=== PATIENT | male | born 1935 | race Caucasian/White ===

== ENCOUNTER 2018-01-18 20:37 | Emergency (ER) | payer OTHER ==
[~2018-01-18] VITALS: Ht 172.7 cm; Wt 99.0 kg
[2018-01-18 21:46] LABS: HEMATOCRIT 44.1 % (38.0-50.0); HEMOGLOBIN 15.6 G/DL (12.5-16.6); MCHC 35.4 G/DL (30.0-36.0); MCV 90.4 FL (86-99); PLATELET COUNT 222 K/uL (156-360); RBC DIS.WIDTH-CV 11.9 % (11.8-14.6); RBC DIS.WIDTH-SD 39.7 % (39-53); RED BLOOD COUNT 4.88 M/uL (4.00-5.50); WHITE BLOOD COUNT 9.6 K/uL (4.1-10.2)
[2018-01-18 21:51] LABS: INTER. NORMALIZED RATIO 1.1
[2018-01-18 21:57] LABS: CHLORIDE 103 mEq/L (99-109); POTASSIUM 4.1 mEq/L (3.7-5.4); SODIUM 135 mEq/L (136-147)
[2018-01-18 21:59] LABS: GLUCOSE 156 mg/dL (70-99)
[2018-01-18 22:02] LABS: SERUM ETHYL ALCOHOL 176 mg/dL
[2018-01-18 22:03] LABS: CREATININE 1.2 mg/dL (0.6-1.3); GFR ESTIMATE (CALCULATED) > 59 mL/min/ (58.99-99999)
[2018-01-18 22:04] LABS: UREA NITROGEN (BUN) 19 mg/dL (9-23)
[2018-01-19 00:38] VITALS: BP 107/72
== END 2018-01-19 00:41 | disposition home or self-care (01) ==
LOC: EME → EDBD 20:37 → EME 01-19 00:41
PROVIDERS: Emergency Medicine
PROC: 0HQ1XZZ Repair Face Skin, External Approach (ICD-10-PCS; principal; 2018-01-18)
DX: F10.129 Alcohol abuse with intoxication, unspecified (principal); Y90.6 Blood alcohol level of 120-199 mg/100 ml; S02.2XXA Fracture of nasal bones, initial encounter for closed fracture; S01.21XA Laceration without foreign body of nose, initial encounter; S80.212A Abrasion, left knee, initial encounter; W19.XXXA Unspecified fall, initial encounter; I10 Essential (primary) hypertension; E78.5 Hyperlipidemia, unspecified; Z79.82 Long term (current) use of aspirin
CPT/HCPCS: 70450; 70486; 80048; 85027; 85610; 99281; 99285; G0480; J7030